=== PATIENT | male | born 1990 | race Caucasian/White ===

== ENCOUNTER → 2019-06-11 | Emergency (ER) | payer OTHER ==
[~2019-06-11] VITALS: Ht 157.5 cm; Wt 52.6 kg
[~2019-06-11] MED LIST: CEFADROXIL500 MG; SYMBICORT 16010.2 GM; TUSSI-ORGANIDI473 M2; XOPENEX0.63 MG/3
== END | disposition home or self-care (01) ==
LOC: ER 03:27
DX: J06.9 Acute upper respiratory infection, unspecified (principal); B34.9 Viral infection, unspecified

== ENCOUNTER 2020-03-04 21:17 | Emergency (ER) | payer OTHER ==
[~2020-03-04] VITALS: Ht 157.5 cm; Wt 53.5 kg
[2020-03-05] MEDS ORDERED: ACETAMINOPHEN650 MG PO (02:17)
[2020-03-05] MEDS ORDERED: VITAMIN C WIT1000 MG PO (02:18)
== END 2020-03-05 03:18 | disposition home or self-care (01) ==
LOC: ER 21:17
DX: R00.2 Palpitations (principal); R07.89 Other chest pain; Z03.818 Encounter for observation for suspected exposure to other biological agents ruled out

== ENCOUNTER 2020-11-15 21:36 | Emergency (ER) | payer OTHER ==
[~2020-11-15] VITALS: Ht 157.5 cm; Wt 52.2 kg
[~2020-11-15 21:36] MED LIST changes: +ACETAMINOPHEN650 MG PO; +VITAMIN C WIT1000 MG PO
== END 2020-11-16 04:37 | disposition home or self-care (01) ==
LOC: ER 21:36 → CPU-OBS 11-16 01:14 → ER 11-16 04:37
DX: R07.89 Other chest pain (principal)
CPT/HCPCS: G0378; G0379; 93005